=== PATIENT | female | born 1930 | race Caucasian/White ===

== ENCOUNTER → 2020-10-05 | Outpatient (CLI) | payer MEDICARE ==
[~2020-10-05] MED LIST: ATIVAN; EFFEXOR XR 75MG75 MG; HYDROCODONE; Z.0.ATENOLOL50 MG PO; Z.0.BUSPIRONE HCL10 PO; Z.0.SIMVASTATIN40 MG PO; Z.0.SYNTHROID125 MCG PO
== END ==
LOC: MRI 07:22
PROVIDERS: ATTEND Family Medicine
DX: R51.9 Headache, unspecified (principal); R42 Dizziness and giddiness
CPT/HCPCS: 70551; 93880